=== PATIENT | male | born 1965 | race Caucasian/White ===

== ENCOUNTER 2017-12-18 16:04 | Emergency (ER) | payer OTHER ==
[~2017-12-18] VITALS: Ht 182.9 cm; Wt 93.0 kg
[2017-12-18] MEDS ORDERED: LIDOCAINE HCL 2% 20 ML VIAL TP ONE (16:45)
--- NOTE | 2017-12-18 17:03 | NUR ---
PATIENT WAS SEEN BY DR CUEVAS FOR FINGER DISLOCATION. FINGER WAS RDUCED BY MD. PATIENT STATES HE HAS NO PAIN AT THIS MOMENT... LIDOCAINE STILL IN EFFECT. FINGER SPLINT APPLIED. DC AND F/U INSTRUCTIONS GIVEN AND EXPLAINED TO PATIENT STATES HE UNDERSTANDS ALL INSTRUCTIONS INCLUDING SEEING A HAND SPECIALIST MD.
== END 2017-12-18 17:06 | disposition home or self-care (01) ==
LOC: ER 16:06
DX: S63.251A Unspecified dislocation of left index finger, initial encounter (principal); W23.0XXA Caught, crushed, jammed, or pinched between moving objects, initial encounter; Y93.89 Activity, other specified; Y92.89 Other specified places as the place of occurrence of the external cause; Y99.8 Other external cause status
CPT/HCPCS: 73130; 73140; A4663